=== PATIENT | male | born 1960 | race Caucasian/White ===

== ENCOUNTER → 2017-08-09 | Outpatient (CLI) | payer BC ==
--- NOTE | 2017-08-12 13:52 | PCVCIMAG ---
APPROVED REPORT Exam: Nuclear Stress Test Indication: Chest Pain, Exercise Intolerance Patient Location: Out Patient Stress Nurse: Karen Guajardo RN, Bridgette Garrett RN ND Tech:Robert Faye NMTCB Ht: 5 ft 11 in Wt: 196 lbs BSA: 2.09 m2 HR: 68 bpm BP: 130/74 mmHg BMI: 27.3 Rhythm: SR Medical History Medical History: Age, Hyperlipidemia, Medications: Atorvastatin, ASA Allergies: Codeine Pretest Chest Pain Characteristics: No chest pain Exercise History: Physically active NM EXAM: Myocardial Perfusion REST/STRESS Imaging Protocol: Rest Tc-99m/Stress Tc-99m 1 day Resting Data Rest SPECT myocardial perfusion imaging was performed in supine position 45 minutes following the intravenous injection of 11.2 mCi of Tc-99m Sestamibi. Time of rest injection: 904 Date: 08/09/2017 Exercise Stress At peak stress, the patient was injected intravenously with 32.8mCi of Tc-99m Sestamibi. Time of stress injection: 1029 Date: 08/09/2017 The images were gated to evaluate regional wall motion and calculate left ventricular ejection fraction. Study Quality Study: Good Study Data Post stress, the left ventricular ejection was 67%.. SSS: 0 SRS: 0 SDS: 0 TID = 0.89. Perfusion No evidence of stress induced ischemia or prior myocardial infarction. Wall Motion Normal left ventricular size and function with no regional wall motion abnormalities. Nuclear Conclusion No evidence of stress induced ischemia or prior myocardial infarction. Normal left ventricular size and function with no regional wall motion abnormalities. Post stress, the left ventricular ejection was 67%.. No prior study available for comparison. Interpreted by: Masoud Shin MD Electronically Approved: 08/09/2017 14:17:51 Stress Test Details Stress Test: Exercise stress testing was performed using a Francisco protocol. HR Resting HR: 68 bpmMax Heart Rate (APMHR): 164 bpm Max HR Achieved: 155 bpmTarget HR (85% APMHR): 139 bpm % of APMHR: 94 Recovery HR: 86 bpm HR response to stress: Normal HR response to stress BP Resting BP: 130/74 mmHg Max BP: 181/80 mmHg BP response to stress: Normal blood pressure response to stress. ECG Resting ECG: Sinus Rhythm Stress ECG: Sinus Tachycardia ST Change: Mild Upsloping ST depression Maximum ST Deviation: 1.0 mm Arrhythmia: None Recovery ECG: Sinus Rhythm Clinical Reason for Termination: Fatigue, Maximal effort Stress Symptoms: Dyspnea, Leg Fatigue Exercise duration: 10 min 46 sec Exercise capacity: 13.40 METs Overall Exercise Capacity for Age: Good Scale: Active Angina Score: Non-Limiting Symptoms resolved during recovery. Stress ECG Conclusion ECG: Non-ischemic Willis Treadmill Score is 1.0 which is Moderate risk. <Conclusion> ECG: Non-ischemic
== END | disposition home or self-care (01) ==
LOC: PCVCIMAG 08:53
PROVIDERS: ATTEND Internal Medicine Cardiovascular Disease
DX: I25.10 Atherosclerotic heart disease of native coronary artery without angina pectoris (principal); K52.9 Noninfective gastroenteritis and colitis, unspecified; E78.5 Hyperlipidemia, unspecified; R00.0 Tachycardia, unspecified
CPT/HCPCS: 78452; 93017; A9500

== ENCOUNTER → 2019-10-01 | Outpatient (CLI) | payer BC ==
--- NOTE | 2019-10-01 17:31 | PCVCIMAG ---
APPROVED REPORT Study performed: 10/01/2019 12:42:30 Exam: Stress Echocardiogram Indication: Elevated coronary calcium score,dslp Patient Location: Echo lab Stress Nurse: Bridgette Garrett RN Room #: 2 Ht: 5 ft 10 in HR: 66 bpm BP: 110/76 mmHg Rhythm: NSR Medical History Medical History: cad,palp,elev cor ca score Previous Cardiac Procedures: none Pretest Chest Pain Characteristics: No chest pain Exercise History: Physically active Procedure The patient underwent an Exercise Stress Test using the Francisco Protocol. Blood pressure, heart rate, and EKG were monitored. An Echocardiogram was performed by medical instrument technician in four stages in quad fashion. At peak stress, four selected images were obtained and placed side by side with resting images for comparison. Stress Test Details Stress Test: Exercise stress testing was performed using a Francisco protocol. HR Resting HR: 66 bpmMax Heart Rate (APMHR): 162 bpm Max HR Achieved: 162 bpmTarget HR (85% APMHR): 137 bpm % of APMHR: 100 Recovery HR: 91 bpm HR response to stress: Normal HR response to stress BP Resting BP: 110/76 mmHg Max BP: 150/70 mmHg Recovery BP: 140/62 mmHg BP response to stress: Normal blood pressure response to stress. ECG Resting ECG: Incomplete RBBB ST Change: Non-ischemic Arrhythmia: rare Recovery ECG: Sinus Rhythm, Incomplete RBBB Recovery ST Change: Non-ischemic Recovery Arrhythmia: rare Clinical Reason for Termination: Maximal effort Stress Symptoms: fatigue Exercise duration: 12 min 00 sec Highest Stage Achieved: Stage 4: 4.2 mph at 16% grade. Exercise capacity: 13.7 METs Overall Exercise Capacity for Age: Good Scale: Active Angina Score: None No complications. Pre-Stress Echo The resting Echocardiogram showed normal left ventricular contractility with an estimated Ejection Fraction of about 55-60%. Normal wall motion in all segments on baseline images. Post-Stress Echo The stress Echocardiogram showed normal left ventricular contractility with an estimated Ejection Fraction of about 65-70%. Normal augmentation of wall motion in all segments on post stress images. Clinical No clinical or ECG evidence for ischemia. Conclusion Clinical Response: Non-ischemic Exercise Capacity: Superior Stress ECG Response: Non-ischemic Stress Echo Images: Non-ischemic Normal stress echocardiogram with maximal exercise stress. No clinical, EKG or echocardiographic evidence for ischemia. No echocardiographic evidence for exercise induced ischemia. Normal color doppler. No regurgitation or stenosis present on pulmonic, mitral, tricuspid and aortic valves. <Conclusion> Normal stress echocardiogram with maximal exercise stress. No clinical, EKG or echocardiographic evidence for ischemia. No echocardiographic evidence for exercise induced ischemia. Normal color doppler. No regurgitation or stenosis present on pulmonic, mitral, tricuspid and aortic valves.
== END | disposition home or self-care (01) ==
LOC: PCVCIMAG 12:31
PROVIDERS: ATTEND Internal Medicine Cardiovascular Disease
DX: I25.10 Atherosclerotic heart disease of native coronary artery without angina pectoris (principal); E78.5 Hyperlipidemia, unspecified; K40.90 Unilateral inguinal hernia, without obstruction or gangrene, not specified as recurrent; Z72.89 Other problems related to lifestyle; Z88.5 Allergy status to narcotic agent
CPT/HCPCS: 93325; 93351